=== PATIENT | male | born 1940 | race Caucasian/White ===

== ENCOUNTER → 2020-09-26 18:54 | Outpatient (ROUT) | payer MEDICARE, OTHER, SELFPAY ==
[2020-09-26 19:42] LABS: Aspartate Aminotransferase 30 IU/L (17-59); BUN Creatinine Ratio 24.5 (6-22); Blood Urea Nitrogen 23 mg/dL (9-20); Calcium 9.3 mg/dL (8.4-10.2); Carbon Dioxide 27 mmol/L (22-32); Chloride 100 mmol/L (98-107); Cholesterol 189 mg/dL (140-199); Estimated Glomerular Filt Rate > 60.0 mL/min (>60); Glucose 96 mg/dL (80-110); HDL Cholesterol 97 mg/dL (40-60); HEMOLYSIS < 15 (0-50); LDL Cholesterol Calculated 76 mg/dL (<100); Potassium 3.8 mmol/L (3.4-5.1); Sodium 135 mmol/L (137-145); Triglycerides 78 mg/dL (35-150)
[2020-09-26 19:44] LABS: Hemoglobin A1C% w Est Avg Glu 5.1 % (4.0-6.0)
[2020-09-29 10:51] LABS: Prostate Specific Antigen 0.862 ng/mL (0.10-4.00)
== END ==
PROVIDERS: PCP Internal Medicine; Visit Provider Internal Medicine
DX: R73.01 Impaired fasting glucose (principal); I10 Essential (primary) hypertension; E78.2 Mixed hyperlipidemia; N40.0 Benign prostatic hyperplasia without lower urinary tract symptoms
CPT/HCPCS: 80048; 80061; 83036; 84153; 84450

== ENCOUNTER → 2022-07-30 11:50 | Outpatient (CLI) | payer MEDICARE, OTHER, SELFPAY ==
[2022-07-30 12:49] LABS: Hematocrit 39.8 % (41-53); Hemoglobin 13.1 g/dL (13.5-17.5); Mean Corpuscular Hemoglobin 28.9 PG (26-34); Mean Corpuscular Volume 87.7 fL (80-100); Platelet Count 289 X10^3/uL (150-400); Red Blood Cell Count 4.54 X10^6/uL (4.5-5.9); Red Cell Distribution Width 13.4 % (11.6-14.8); White Blood Cell Count 4.7 X10^3/uL (4.5-11.0)
[2022-07-30 13:20] LABS: Alanine Aminotransferase 21 IU/L (<50); Albumin 4.5 g/dL (3.5-5.0); Albumin Globulin Ratio 1.6 (1.0-2.8); Alkaline Phosphatase 56 U/L (38-126); Aspartate Aminotransferase 24 IU/L (17-59); BUN Creatinine Ratio 35.1 (6-22); Bilirubin Total 0.9 mg/dL (0.2-1.3); Blood Urea Nitrogen 26 mg/dL (9-20); Calcium 8.9 mg/dL (8.4-10.2); Carbon Dioxide 26 mmol/L (22-32); Chloride 101 mmol/L (98-107); Estimated Glomerular Filt Rate > 60 mL/min (>60); Globulin 2.9 g/dL (1.7-4.1); Glucose 103 mg/dL (80-110); HEMOLYSIS < 15 (0-50); Potassium 3.9 mmol/L (3.4-5.1); Sodium 135 mmol/L (137-145); Total Protein 7.4 g/dL (6.3-8.2)
[2022-07-30 13:30] LABS: NT-proBNP (BNP-Adult 18+) 59 pg/mL (<450)
[2022-07-30 13:50] LABS: TSH w/ Reflex to FT4 3.32 uIU/mL (0.47-4.68)
== END ==
PROVIDERS: PCP Internal Medicine; Referring Provider Internal Medicine; Visit Provider Internal Medicine
DX: E78.2 Mixed hyperlipidemia (principal); R06.00 Dyspnea, unspecified; I10 Essential (primary) hypertension
CPT/HCPCS: 36415; 80053; 83880; 84443; 85027

== ENCOUNTER → 2022-08-24 09:00 | Outpatient (CLI) | payer MEDICARE, OTHER, SELFPAY ==
--- NOTE | 2022-08-28 00:04 | DI.NM.S_ITS ---
DATE OF SERVICE: 08/24/2022 PROCEDURE PERFORMED: Exercise treadmill stress and rest myocardial perfusion imaging with gating to assess ejection fraction and regional wall motion. ORDERING PROVIDER: Ethan Ozuna MD INDICATIONS: The patient is an 82-year-old male with hypertension and exertional dyspnea, who requires preoperative clearance prior to orthopedic surgery. CARDIAC STRESS: The patient exercised by treadmill using a standard Ravindra protocol, but was able to exercise for only 2 minutes and 57 seconds, suggesting moderately reduced exercise capacity with an MARIA VICTORIA of +24%, achieving 4.0 METS. He had a normal heart rate and blood pressure response, achieving a maximum heart rate of 137 bmp (101% of his predicted maximum). He had no chest discomfort or anginal symptoms. His resting ECG shows sinus rhythm with fairly frequent, but isolated PVCs that resolved with stress and there were no obvious ST-segment shifts. Isolated PVCs returned in recovery but without complex ectopy. At 2 minutes of exercise at a heart rate of 125 bpm, 25.6 millicuries of technetium-99m Myoview was injected and he was imaged 10 minutes later using a gated SPECT acquisition protocol. Two days prior, he had been injected with 12.7 millicuries of technetium-99m Myoview and was imaged 20 minutes later, again using a gated SPECT acquisition protocol. FINDINGS: 1. Raw data. There is fair myocardial tracer uptake with some evidence for diaphragmatic attenuation although the patient was unable to lie prone. His heart/lung ratio is normal at 0.37 with a normal TID ratio of 1.05. 2. Quantitated gated SPECT: Post-stress ejection fraction is estimated at 75% without any focal wall motion abnormality and specifically, the inferior wall appears to have normal contractility. The resting ejection fraction is 76% with a borderline elevated resting end-diastolic volume of 122 mL. 3. Myocardial perfusion imaging: Post-stress supine images show a fairly normal myocardial perfusion pattern although with a mild perfusion defect in the inferior wall, more prominent at the base and sparing the apex, in a pattern that would be consistent with diaphragmatic attenuation. Unfortunately, no prone images are available to assess for this. The resting images show an identical perfusion pattern without any improvement in his inferior perfusion defect. IMPRESSION: 1. Probable normal myocardial perfusion study. 2. Mild, fixed inferior wall perfusion defect, most likely reflecting diaphragmatic attenuation artifact although there are no prone images to assess for this. While a previous nontransmural myocardial infarction cannot be entirely excluded, it is less likely given the absence of any wall motion abnormality in this distribution. There is no evidence for any myocardial ischemia. 3. Normal left ventricular systolic function with borderline increased left ventricular volumes. 4. Moderately reduced exercise capacity without angina or ECG changes of ischemia. While he had isolated PVCs at rest, these resolved with exercise and returned in recovery without any complex ventricular ectopy. [place] [facility] doc#: [id number]/job#: [id number] dd: 08/27/2022 16:37:00 dt: 08/27/2022 23:34:00 DICTATING MD/COPIES TO: Nakul Gilbert MD; Ethan Ozuna MD COPIES MNE: TAYLOR;
== END ==
PROVIDERS: PCP Internal Medicine; Referring Provider Internal Medicine; Visit Provider Internal Medicine
DX: Z01.810 Encounter for preprocedural cardiovascular examination (principal); R06.00 Dyspnea, unspecified; I10 Essential (primary) hypertension
CPT/HCPCS: 78452; 93017; A9502

== ENCOUNTER → 2022-09-21 13:20 | Outpatient (CLI) | payer MEDICARE, OTHER, SELFPAY ==
--- NOTE | 2022-09-21 13:29 | DI.CT.S_ITS ---
PROCEDURE: CT SHOULDER RIGHT WITHOUT CON INDICATIONS: SHOULDER PAIN TECHNIQUE: Noncontrast 1-1.5 mm thick sections acquired from the acromioclavicular joint to the inferior scapula, with coronal and sagittal reformatting. COMPARISON: None. FINDINGS: Image quality: Excellent. Bones: Moderate acromioclavicular joint osteoarthritic changes are seen with significant joint space narrowing, subchondral sclerosis and downward osteophyte formation depressing the musculotendinous junction of supraspinatus. Severe glenohumeral joint osteoarthritic changes are noted with near complete loss of joint space, extensive subchondral sclerosis and cyst formation and prominent inferior marginal osteophyte formation. No fracture or dislocation. No suspicious intraosseous lesion. Visualized right upper ribs are grossly intact. Soft tissues: There is moderate joint effusion and subacromial subdeltoid bursal fluid. No gross full-thickness rotator cuff tendon rupture. Mild supraspinatus muscle atrophy is noted on sagittal images. No abnormal soft tissue calcifications or intra-articular loose bodies. No right axillary lymphadenopathy. Visualized right lung field is clear. IMPRESSION: 1. 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 No shoulder fracture or dislocation. No suspicious bony lesions. 2. No full-thickness rotator cuff tendon rupture. Mild supraspinatus muscle atrophy. 3. Moderate joint effusion and subacromial subdeltoid bursal fluid. No abnormal soft tissue calcifications or calcified intra-articular loose bodies. Dictated by: Lio Stewart M.D. on 09/21/2022 at 16:17 Approved by: Lio Stewart M.D. on 09/21/2022 at 16:52
== END ==
PROVIDERS: PCP Internal Medicine; Referring Provider Orthopaedic Surgery; Visit Provider Orthopaedic Surgery
DX: M19.011 Primary osteoarthritis, right shoulder (principal); M25.411 Effusion, right shoulder; M25.511 Pain in right shoulder; M25.512 Pain in left shoulder
CPT/HCPCS: 73200

== ENCOUNTER → 2023-05-17 15:35 | Outpatient (CLI) | payer MEDICARE, OTHER, SELFPAY ==
[2023-05-17 17:30] LABS: Alanine Aminotransferase 23 IU/L (<50); Albumin 4.5 g/dL (3.5-5.0); Albumin Globulin Ratio 1.4 (1.0-2.8); Alkaline Phosphatase 48 U/L (38-126); Aspartate Aminotransferase 27 IU/L (17-59); Bilirubin Total 0.8 mg/dL (0.2-1.3); Blood Urea Nitrogen 46 mg/dL (9-20); Calcium 9.3 mg/dL (8.4-10.2); Carbon Dioxide 24 mmol/L (22-32); Chloride 103 mmol/L (98-107); Cholesterol 192 mg/dL (140-199); Estimated Glomerular Filt Rate 59 mL/min (>60); Globulin 3.3 g/dL (1.7-4.1); Glucose 91 mg/dL (80-110); HDL Cholesterol 88 mg/dL (40-60); HEMOLYSIS < 15 (0-50); LDL Cholesterol Calculated 83 mg/dL (<100); Sodium 135 mmol/L (137-145); Total Protein 7.8 g/dL (6.3-8.2); Triglycerides 103 mg/dL (35-150)
== END ==
PROVIDERS: PCP Internal Medicine; Referring Provider Internal Medicine; Visit Provider Internal Medicine
DX: E78.2 Mixed hyperlipidemia (principal); I10 Essential (primary) hypertension
CPT/HCPCS: 36415; 80053; 80061

== ENCOUNTER → 2023-08-26 15:46 | Outpatient (CLI) | payer MEDICARE, OTHER, SELFPAY ==
[2023-08-26 17:56] LABS: C-Reactive Protein Quant < 0.5 mg/dL (<1.0)
[2023-08-26 18:37] LABS: Erythrocyte Sedimentation Rate 7 MM/HR (0-15)
[2023-08-27 04:36] LABS: RPR Screen Non Reactive (Non Reactive)
[2023-08-28 15:10] LABS: Angiotensin Converting Enzyme 33 U/L (14-82)
[2023-08-29 16:56] LABS: Lysozyme (Muramidase) 5.8 ug/mL (4.2-9.5)
[2023-08-31 13:18] LABS: QuantiFERON Mitogen Value >10.00 IU/mL (.); QuantiFERON Nil Value 0.43 IU/mL (.); QuantiFERON TB Gold Plus Negative (Negative); QuantiFERON TB1 Ag Value 0.23 IU/mL (.); QuantiFERON TB2 Ag Value 0.32 IU/mL (.)
== END ==
PROVIDERS: PCP Internal Medicine; Referring Provider Ophthalmology; Visit Provider Ophthalmology
DX: H53.431 Sector or arcuate defects, right eye (principal)
CPT/HCPCS: 82164; 85549; 85651; 86140; 86480; 86592

== ENCOUNTER → 2024-07-17 16:23 | Outpatient (CLI) | payer MEDICARE, OTHER, SELFPAY ==
[2024-07-17 17:00] LABS: Hematocrit 40.6 % (41-53); Hemoglobin 13.5 g/dL (13.5-17.5); Mean Corpuscular HGB Conc 33.4 % (30-36); Mean Corpuscular Hemoglobin 29.4 PG (26-34); Mean Corpuscular Volume 88.1 fL (80-100); Platelet Count 305 X10^3/uL (150-400); Red Blood Cell Count 4.61 X10^6/uL (4.5-5.9); Red Cell Distribution Width 13.1 % (11.6-14.8); White Blood Cell Count 6.4 X10^3/uL (4.5-11.0)
[2024-07-17 17:27] LABS: Alanine Aminotransferase 23 IU/L (<50); Albumin 4.5 g/dL (3.5-5.0); Albumin Globulin Ratio 1.9 (1.0-2.8); Alkaline Phosphatase 61 U/L (38-126); Aspartate Aminotransferase 30 IU/L (17-59); BUN Creatinine Ratio 31.6 (6-22); Bilirubin Total 0.9 mg/dL (0.2-1.3); Blood Urea Nitrogen 37 mg/dL (9-20); Calcium 9.3 mg/dL (8.4-10.2); Carbon Dioxide 24 mmol/L (22-32); Chloride 104 mmol/L (98-107); Cholesterol 198 mg/dL (140-199); Estimated Glomerular Filt Rate > 60 mL/min (>60); Globulin 2.4 g/dL (1.7-4.1); Glucose 91 mg/dL (80-110); HDL Cholesterol 104 mg/dL (40-60); HEMOLYSIS < 15 (0-50); LDL Cholesterol Calculated 81 mg/dL (<100); Potassium 4.3 mmol/L (3.4-5.1); Sodium 136 mmol/L (137-145); Total Protein 6.9 g/dL (6.3-8.2); Triglycerides 64 mg/dL (35-150)
[2024-07-17 17:56] LABS: TSH w/ Reflex to FT4 3.75 uIU/mL (0.47-4.68)
== END ==
PROVIDERS: PCP Internal Medicine; Referring Provider Internal Medicine; Visit Provider Internal Medicine
DX: E78.2 Mixed hyperlipidemia (principal); N40.1 Benign prostatic hyperplasia with lower urinary tract symptoms; I10 Essential (primary) hypertension; N13.8 Other obstructive and reflux uropathy
CPT/HCPCS: 36415; 80053; 80061; 84153; 84443; 85027